=== PATIENT | male | born 1975 | race Caucasian/White ===

== ENCOUNTER 2018-06-27 14:13 | Emergency (ER) | payer OTHER ==
[2018-06-27 15:09] VITALS: BP 151/101
[2018-06-27] MEDS ORDERED: Ibuprofen TAB* 600 MG PO ONE (15:21)
--- NOTE | 2018-06-27 15:57 | RAD ---
Indication: Right foot pain. 3 views of the right foot demonstrates no fracture. No other bone or joint abnormality is noted. IMPRESSION: No fracture of the right foot is noted.
--- NOTE | 2018-06-27 16:23 | UC ---
Lower Extremity/Ankle HPI - HPI Summary HPI Summary: Patient complains of right foot pain after jumping up and down on diving board with subsequent pain and swelling to the top of right foot. Patient states he landed on the ball of his foot, but pain is on the top of his foot. Denies prior history of same, any other injuries or pain, head injury. Medical history is none. - History of Current Complaint Chief Complaint: UCLowerExtremity Stated Complaint: R FOOT INJURY Time Seen by Provider: 06/27/18 15:17 Hx Obtained From: Patient Onset/Duration: Sudden Onset Severity Currently: Moderate Pain Intensity: 5 Pain Scale Used: 0-10 Numeric Aggravating Factor(s): Ambulation Alleviating Factor(s): Rest Able to Bear Weight: Yes - Allergies/Home Medications Allergies/Adverse Reactions: Allergies Allergy/AdvReac Type Severity Reaction Status Date / Time No Known Allergies Allergy Verified 06/27/18 15:09 PMH/Surg Hx/FS Hx/Imm Hx - Surgical History Surgical History: Yes Surgery Procedure, Year, and Place: tonsils; wisdom teeth - Family History Known Family History: Positive: Unknown - Social History Alcohol Use: Occasionally Substance Use Type: None Smoking Status (MU): Never Smoked Tobacco Review of Systems Constitutional: Negative Skin: Negative Eyes: Negative ENT: Negative Respiratory: Negative Cardiovascular: Negative Gastrointestinal: Negative Genitourinary: Negative Motor: Negative Neurovascular: Negative Musculoskeletal: Negative Neurological: Negative Psychological: Negative Is Patient Immunocompromised?: No All Other Systems Reviewed And Are Negative: Yes Physical Exam - Summary Physical Exam Summary: Swelling to dorsal surface of right foot. Tenderness with palpation of right foot. PMS intact distally on right foot. Active flexion and extension of toes of right foot intact, dorsiflexion and plantar flexion intact. No obvious deformity, erythema, ecchymosis, extra warmth, no old to right foot. Triage Information Reviewed: Yes Vital Signs: Initial Vital Signs Temp 98.4 F 06/27/18 15:05 Pulse 89 06/27/18 15:05 Resp 16 06/27/18 15:05 BP 151/101 06/27/18 15:05 Pulse Ox 98 06/27/18 15:05 Vital Signs Reviewed: Yes Eye Exam: Normal Neck exam: Normal Respiratory Exam: Normal Cardiovascular Exam: Normal Abdominal Exam: Normal Musculoskeletal Exam: Normal Neurological Exam: Normal Psychological Exam: Normal Skin Exam: Normal Lower Extremity Course/Dx - Course Course Of Treatment: Patient complains of right foot pain after jumping up and down on diving board with subsequent pain and swelling to the top of right foot. Patient states he landed on the ball of his foot, but pain is on the top of his foot. Denies prior history of same, any other injuries or pain, head injury. Medical history is none. Physical exam:Swelling to dorsal surface of right foot. Tenderness with palpation of right foot. PMS intact distally on right foot. Active flexion and extension of toes of right foot intact, dorsiflexion and plantar flexion intact. No obvious deformity, erythema, ecchymosis, extra warmth, no old to right foot. X-ray negative for acute bony process. Patient can bear weight and ambulate. If pain does not improve within a few days follow-up with orthopedics. - Differential Dx/Diagnosis Provider Diagnoses: foot pain Discharge - Sign-Out/Discharge Documenting (check all that apply): Patient Departure All imaging exams completed and their final reports reviewed: Yes - xray rt foot NEG - Discharge Plan Condition: Stable Disposition: HOME Patient Education Materials: Metatarsalgia (DC) Referrals: No Primary Care Phys,NOPCP [Primary Care Provider] - Fahad Howell MD [Medical Doctor] - Additional Instructions: Ice, elevation, and ibuprofen for pain. If pain and swelling does not improve in next couple days, follow up with Orthopedics Dr Howell. - Billing Disposition and Condition Condition: STABLE Disposition: Home - Attestation Statements Provider Attestation: Per institutional requirements, I have reviewed the chart, however, I was not consulted specifically or made aware of this patient by the midlevel provider. I did not personally evaluate, interact with , or disposition this patient.
== END 2018-06-27 16:35 | disposition home or self-care (01) ==
LOC: UCEAST 14:13
DX: M79.671 Pain in right foot (principal); M79.89 Other specified soft tissue disorders
CPT/HCPCS: 99212; A9270-GY; G0463

== ENCOUNTER 2018-07-21 06:59 | Day surgery (SDC) | payer OTHER ==
[~2018-07-21 06:59] MED LIST: Buffered Lidocaine 0.9% SYRIN* 5 ML/SYR SYRINGE INTRADERM ONE; Dexamethasone IV* 4 MG/ML 1 ML (4 MG) IV SLOW PU ONE; Famotidine IV* 10 MG/ML 2 ML (20 mg) IV ONE
[2018-07-21] MEDS ORDERED: Dexamethasone IV* 4 MG/ML 1 ML (4 MG) ONE (07:20)
[2018-07-21] MEDS ORDERED: ceFAZolin 1 GM ADVAN(*) 1 GM ADDV.VIAL IVPB ONE (07:22)
[2018-07-21] MEDS ORDERED: Famotidine IV* 10 MG/ML 2 ML (20 mg) ONE (07:22)
[2018-07-21] MEDS ORDERED: Bupivacaine 0.25% SDV* 30 ML ONE (08:14)
[2018-07-21] MEDS ORDERED: oxyCODONE/Acetamin 5/325 MG* TAB PO PRN (08:47)
[2018-07-21] MEDS ORDERED: DiMENhydriNATE IV* 50 MG/ML VIAL IV PUSH PRN (08:47)
[2018-07-21] MEDS ORDERED: Naloxone* 0.4 MG/ML 1 ML VIAL IV PRN (08:47)
[2018-07-21] MEDS ORDERED: HYDROcodone/ACETAMIN 5-325 MG* 1 TAB PO PRN (08:47)
[2018-07-21] MEDS ORDERED: fentaNYL* 50 MCG/ML 2 ML VIAL (100 MCG VIAL) ONE ×5 (09:02→12:12)
[2018-07-21] MEDS ORDERED: Midazolam* 1 MG/ML 5 ML VIAL (5 MG) ONE (09:02)
[2018-07-21] MEDS ORDERED: Propofol* 10 MG/ML 20 ML BTL IV PUSH ONE (09:10)
[2018-07-21] MEDS ORDERED: Lidocaine 2% PF * 5 ML VIAL ONE (09:10)
[2018-07-21] MEDS ORDERED: Ketorolac INJ* 30 MG/ML 1 ML VIAL ONE (09:18)
[2018-07-21] MEDS ORDERED: KETAMINE HCL* 50 MG/ML 10 ML VIAL ONE (09:20)
[2018-07-21] MEDS ORDERED: Labetalol IV* 5 MG/ML 20 ML VIAL ONE (10:09)
[2018-07-21] MEDS ORDERED: Ondansetron INJ* 2 MG/ML VIAL ONE (10:11)
[2018-07-21] MEDS: fentaNYL* 50 MCG/ML 2 ML VIAL (100 MCG VIAL) IV PRN ×3 (11:49→12:13)
[2018-07-21] MEDS ORDERED: HYDROcodone/ACETAMIN 5-325 MG* 1 TAB ONE (12:24)
[2018-07-21 14:23] VITALS: BP 127/107
--- NOTE | 2018-07-21 15:44 | OP ---
Operative Report - Blank - Operative Report Date of Operation: 07/21/18 Note: PATIENT: Felipe Martin DATE OF : 1975 DATE OF SURGERY: 07/21/2018 SURGEON: Pierre Paulino MD PROMOTIONS DIRECTOR: LADONNA Almaraz, whos assistance was necessary for positioning, retraction, help with instrumentation, and closure. ANESTHESIOLOGIST: Dr. Angel PREOPERATIVE DIAGNOSIS: Right foot Lisfranc injury with 1st and 2nd TMT joint dislocations, and medial cuneiform fracture. POSTOPERATIVE DIAGNOSIS: Right foot Lisfranc injury with 1st and 2nd TMT joint dislocations, and medial cuneiform fracture. OPERATION: Right foot fusions of 1st TMT joint, 2nd TMT joint and the intercuneiform joint. ANESTHESIA: LMA IMPLANTS: [employer] CFS set plate and screws TOURNIQUET TIME: Two hours with a well-padded thigh tourniquet at 250 mmHg SPECIMENS: none ESTIMATED BLOOD LOSS: minimal COMPLICATIONS: none STATUS: Stable from the operating room to the recovery room and then home. INDICATIONS FOR PROCEDURE: Felipe sustained a right foot Lisfranc injury. CT showed comminution of the medial cuneiform fracture and instability of the 1st and 2nd TMT joints. Both operative and non operative treatment alternatives were reviewed. We discussed ORIF vs fusion at length prior to surgery. We decided to plan on ORIF unless the cuneiform comminution made salvage of the joint unlikely to provide a satisfactory result. The nature and risks of surgery were reviewed in careful detail, in the office as well as the pre-operative holding area. Our discussions regarding the risks of surgery included, but were not limited to, infection, wound problems, nerve injury, neuroma, RSD, persistent symptoms, blood clot, fracture, post-traumatic arthritis, hardware pain, need for further surgery, malunion, nonunion, failure of the surgery, and even the remote chance of catastrophic complication, including loss of limb. DESCRIPTION OF PROCEDURE: The patient was seen in the preoperative holding unit and informed written consent was obtained. The appropriate extremity was marked. The patient was then brought to the operating room and carefully positioned on the operating room table. Anesthesia was induced. All bony prominences were padded with great care. A well-padded thigh tourniquet was placed. A chlorhexidine based pre- scrub was performed followed by a chloraprep prep and drape in standard sterile fashion. A surgical safety pause was then conducted in which we confirmed the appropriate patient, extremity, planned procedure, availability of equipment, indication and administration of prophylactic antibiotics, and DVT prophylaxis in the form of a compression boot on the non-surgical extremity. We began with an Esmarch exsanguination of the limb and inflated the tourniquet to 250 mmHg. I utilized a longitudinal incision over the first metatarsal. I carefully dissected down through the soft tissues with great care taken to protect the superficial and deep neurovascular structures. I then exposed the first TMT joint and dissected laterally in a subperiosteal manner to expose the second tarsometatarsal joint. Both of these joints, and the intercuneiform joint, were subluxated and grossly unstable. I windowed open the dorsal fragment of the medial cuneiform fracture to expose the fracture fragments. I then cleaned out the fracture hematoma. There was significant comminution at the 1st TMT joint surface so I elected to move forward with a fusion as we had discussed at length preoperatively. I exposed the 1st TMT, intercuneiform, 2nd TMT, and 1-2 intermetatarsal joints. I meticulously prepared the joint surfaces for fusion by removing remaining cartilage with a knife and curette and using a 2mm sonu to golfball the subchondral bone. I placed demineralized bone matrix into the fracture gap and at the 4-corner of the fusion. I then manually reduced the 1st TMT joint and held provisionally with K-wires. I then placed a dorsal plate with a compression screw. I then reduced the intercuneiform joint and placed a partially threaded 3.0mm cannulated screw across the joint. I then used a large pointed reduction clamp to reduce the 2nd TMT and lisfranc joints. I placed two continuous compression nitinol juan across the 2nd TMT joint. Finally a 3.0mm partially threaded cannulated screws was placed across the 1-2 intermetatarsal joint. All provisional fixation was then removed The joints all maintained a tight reduction on direct visualization. Final fluoroscopic images were then obtained. At this point, we irrigated copiously and then closed in layers meticulously utilizing 3-0 Monocryl and 3-0 nylon for the skin. A sterile dressing was then applied followed by a splint with the ankle in a neutral position. The patient was then awakened from anesthesia and transferred to the recovery room in stable condition. There were no complications. All needle and sponge counts were correct at the end of the case. ATTESTATION: I attest I was present and scrubbed and performed the critical portions of the procedure myself. POSTOPERATIVE PLAN: Follow up will be in 2 weeks for likely suture removal and postop x-rays. The postoperative plan is to be [id number] for 2 months.
== END 2018-07-21 14:30 | disposition home or self-care (01) ==
LOC: OR 06:59
PROVIDERS: ATTEND Orthopaedic Surgery
DX: S93.314A Dislocation of tarsal joint of right foot, initial encounter (principal); S92.241A Displaced fracture of medial cuneiform of right foot, initial encounter for closed fracture; S93.621A Sprain of tarsometatarsal ligament of right foot, initial encounter; W22.8XXA Striking against or struck by other objects, initial encounter; Y93.39 Activity, other involving climbing, rappelling and jumping off; Y92.095 Swimming-pool of other non-institutional residence as the place of occurrence of the external cause; Z68.31 Body mass index [BMI] 31.0-31.9, adult
CPT/HCPCS: C1713; C1776; J0690; J1100; J1885; J2250; J2405; J2704; J3010